=== PATIENT | female | born 1955 | race Hispanic/Latino ===

== ENCOUNTER → 2020-03-08 | Outpatient (CLI) | payer MEDICARE ==
--- NOTE | 2020-03-08 13:32 | Diagnostic Imaging Report ---
EXAM: CT Chest WITHOUT intravenous contrast 03/08/2020 12:39 PM INDICATION: ^[id number] ^[id number] ^DYSPNEA ON EXERTION COMPARISON: None TECHNIQUE: Chest was scanned utilizing a multidetector helical scanner from the lung apex through the level of the adrenal glands without administration of IV contrast. Coronal and sagittal reformations were obtained. Routine protocol was performed. IV CONTRAST: None RADIATION DOSE: Total DLP: 530 mGy*cm. Dose modulation, iterative reconstruction, and/or weight based adjustment of the mA/kV was utilized to reduce the radiation dose to as low as reasonably achievable. COMPLICATIONS: None FINDINGS: Respiratory motion limited evaluation. Patient was unable to hold their breath. LINES/ TUBES: None. LUNGS AND AIRWAYS: Central airways are patent. Negative for focal lobar consolidation. Dependent subsegmental atelectasis is noted. Scarring is noted within the mid lungs and lung bases. Negative for suspicious pulmonary nodule or mass. PLEURA: Negative for pleural effusion or pneumothorax. HEART AND MEDIASTINUM: The thyroid gland is normal. No mediastinal, hilar or axillary lymphadenopathy. Nonenlarged mediastinal lymph nodes are noted. The heart is normal in size.. Trace pericardial fluid is noted. Coronary artery calcifications are noted. Atherosclerotic changes of the aortic arch are noted. UPPER ABDOMEN: Gallbladder sludge is noted. Diffuse hypoattenuation of the liver is noted. Partially visualized left adrenal nodule is noted measuring up to 3 cm with internal Hounsfield of -5 consistent with adenoma. BONES: Negative for acute osseous abnormality. Left convex curvature of the lower thoracic spine is noted. Mild to moderate multilevel degenerative changes of the spine are noted. There is a well-circumscribed sclerotic lesion within the left transverse process of T11 measuring up to 5 mm. Otherwise no suspicious lytic or blastic lesion is identified. SOFT TISSUES: Unremarkable. IMPRESSION: Respiratory motion limits evaluation. 1. Multifocal scarring is noted within the mid lungs and lung bases. No suspicious pulmonary nodule or mass. Negative for focal consolidation, effusion or pneumothorax. 2. Incidentally noted gallbladder sludge, hepatic steatosis and a left adrenal partially visualized adenoma. Signed by: Faisal Cárdenas MD on 03/08/2020 1:29 PM
== END ==
LOC: CT 12:00
PROVIDERS: ATTEND Internal Medicine
DX: R06.09 Other forms of dyspnea (principal)
CPT/HCPCS: 71250

== ENCOUNTER → 2020-03-22 | Outpatient (CLI) | payer MEDICARE | LOC: RESP 14:08 | PROVIDERS: ATTEND Internal Medicine | DX: J45.40 Moderate persistent asthma, uncomplicated (principal) | CPT/HCPCS: 94060; 94664; 94727; 94729 ==

== ENCOUNTER → 2020-07-18 | Outpatient (CLI) | payer MEDICARE | LOC: US 08:13 | PROVIDERS: ATTEND Internal Medicine | DX: R10.11 Right upper quadrant pain (principal); K80.20 Calculus of gallbladder without cholecystitis without obstruction; K76.0 Fatty (change of) liver, not elsewhere classified | CPT/HCPCS: 71250; 76705 ==